=== PATIENT | female | born 1980 | race Two or more races ===

== ENCOUNTER 2023-04-25 18:23 | Outpatient (REF) | payer MEDICAID, SELFPAY | END 2023-04-25 18:24 | disposition home or self-care (01) | LOC: HO.HHCLNP 18:23 | PROVIDERS: Visit Provider Nurse Practitioner Primary Care | DX: R30.0 Dysuria (principal) | CPT/HCPCS: 87086; 87088; 87186 ==

== ENCOUNTER 2023-06-19 11:14 | Outpatient (REF) | payer MEDICAID, SELFPAY ==
[2023-06-19 14:27] LABS: Alanine Aminotransferase 17 U/L (0-31); Albumin Level 4.2 g/dL (3.5-5.0); Alkaline Phosphatase 59 U/L (39-117); Aspartate Amino Transferase 18 U/L (5-31); Bilirubin Direct 0.4 mg/dL (0.0-0.5); Bilirubin Total 1.1 mg/dL (0.0-1.0); Total Protein 7.1 g/dL (6.5-8.0)
== END 2023-06-19 11:15 | disposition home or self-care (01) ==
LOC: HO.HHCL 11:14
PROVIDERS: Visit Provider Family Medicine
DX: R74.8 Abnormal levels of other serum enzymes (principal)
CPT/HCPCS: 36415; 80076

== ENCOUNTER 2023-07-08 15:46 | Outpatient (REF) | payer MEDICAID, SELFPAY | END 2023-07-08 15:47 | disposition home or self-care (01) | LOC: HO.HHCL 15:46 | PROVIDERS: Visit Provider Emergency Medicine | DX: R30.0 Dysuria (principal) | CPT/HCPCS: 87086; 87088; 87186 ==

== ENCOUNTER 2023-09-15 11:38 | Outpatient (REF) | payer OTHER, SELFPAY | END 2023-09-15 11:39 | disposition home or self-care (01) | LOC: HO.HHCLNP 11:38 | PROVIDERS: Visit Provider Internal Medicine | DX: R35.0 Frequency of micturition (principal) | CPT/HCPCS: 87086 ==

== ENCOUNTER 2024-01-14 12:11 | Outpatient (REF) | payer MEDICAID, SELFPAY ==
[2024-01-14 13:51] LABS: Estimated Average Glucose 117 mg/dL; Hemoglobin A1c % 5.7 % (<6.0)
[2024-01-14 14:33] LABS: Alanine Aminotransferase 43 U/L (0-31); Albumin Level 4.3 g/dL (3.5-5.0); Alkaline Phosphatase 63 U/L (39-117); Anion Gap 14 (12-20); Aspartate Amino Transferase 23 U/L (5-31); Bilirubin Total 1.3 mg/dL (0.0-1.0); Blood Urea Nitrogen 13 mg/dL (9-16); Calcium 9.6 mg/dL (8.4-10.2); Carbon Dioxide 25 mmol/L (22-29); Chloride 105 mmol/L (96-108); Cholesterol 201 mg/dL (<200); Estimated Glomerular Filt Rate > 60; Glucose Random 95 mg/dL (60-115); HDL Cholesterol 53 mg/dL (>40); LDL Cholesterol Calculated 132 mg/dL (<100); Potassium 4.3 mmol/L (3.3-5.1); Sodium 140 mmol/L (135-145); Total Protein 7.4 g/dL (6.5-8.0); Triglycerides 81 mg/dL (<150)
[2024-01-14 15:34] LABS: Reflex LDLD? No
[2024-01-15 04:09] LABS: Syphilis Screen Nonreactive (Nonreactive)
[2024-01-15 04:40] LABS: HIV AB/AG Nonreactive (Nonreactive); HIV Num 1 0.04 S/CO (0.00-0.99); ~HepC Num1 0.09 S/CO (0.00-0.79); ~Hepatitis C Antibody Nonreactive (Nonreactive)
== END 2024-01-14 12:12 | disposition home or self-care (01) ==
LOC: HO.HHCL 12:11
PROVIDERS: Visit Provider Family Medicine
DX: Z11.3 Encounter for screening for infections with a predominantly sexual mode of transmission (principal); R74.8 Abnormal levels of other serum enzymes
CPT/HCPCS: 36415; 80053; 80061; 83036; 86780; 86803; 87389

== ENCOUNTER 2024-02-03 15:54 | Outpatient (REF) | payer MEDICAID, SELFPAY | END 2024-02-03 15:55 | disposition home or self-care (01) | LOC: HO.HHCL 15:54 | PROVIDERS: Visit Provider Emergency Medicine | DX: R30.0 Dysuria (principal) | CPT/HCPCS: 87086; 87088; 87186 ==

== ENCOUNTER 2024-04-08 23:29 | Emergency (ER) | payer MEDICAID, SELFPAY ==
--- NOTE | 2024-04-09 00:10 | PC.NURSE ---
Pt left prior to being triaged.
== END 2024-04-09 00:10 | disposition left against medical advice (07) ==
PROVIDERS: Emergency Provider Emergency Medicine; PCP Family Medicine
DX: R07.9 Chest pain, unspecified (principal); Z53.21 Procedure and treatment not carried out due to patient leaving prior to being seen by health care provider

== ENCOUNTER 2024-05-13 10:56 | Outpatient (REF) | payer MEDICAID, SELFPAY ==
[2024-05-16 07:23] LABS: TS Negative Control Passed; TS Panel A 1; TS Panel B 0; TS Positive Control Passed; TSpotTB Negative (Negative)
== END 2024-05-13 10:57 | disposition home or self-care (01) ==
LOC: HO.HHCL 10:56
PROVIDERS: Visit Provider Family Medicine
DX: Z02.89 Encounter for other administrative examinations (principal)
CPT/HCPCS: 36415; 86481

== ENCOUNTER 2025-03-03 12:06 | Outpatient (REF) | payer MEDICAID, SELFPAY ==
[2025-03-03 13:21] LABS: MANUAL DIFF FLAG NO
[2025-03-03 13:25] LABS: Basophils Percent Auto 0.7 % (0-2); Eosinophils Absolute Auto 0.2 X10*3/uL (0.0-0.4); Eosinophils Percent Auto 3.9 % (0-4); Imm Gran Abs Auto 0.01 X10*3/uL (0.00-0.03); Imm Gran Pct Auto 0.2 % (0.0-0.4); Mean Corpuscular HGB Conc 33.3 g/dl (31.0-35.0); Mean Platelet Volume 10.3 fL (9.4-12.3); Monocytes Absolute Auto 0.6 X10*3/uL (0.1-1.2); Monocytes Percent Auto 10.3 % (2-11); Neutrophils Absolute Auto 2.6 x10*3/uL (2.0-8.3); Neutrophils Percent Auto 47.9 % (45-73); Platelet Count 319 X10*3/uL (160-400); Red Blood Count 4.83 X10*6/uL (4.20-5.50); Red Cell Distribution Width 12.8 % (11.0-16.0); White Blood Count 5.4 X10*3/uL (4.8-10.8)
[2025-03-03 13:38] LABS: Estimated Average Glucose 108 mg/dL; Hemoglobin A1C 131.9166 umol/L; Hemoglobin A1c % 5.4 % (<6.0); Total Hemoglobin (HGBA1C) 3672.2455 umol/L
[2025-03-03 13:45] LABS: Alanine Aminotransferase 45 U/L (0-31); Albumin Level 4.4 g/dL (3.5-5.0); Alkaline Phosphatase 57 U/L (39-117); Anion Gap 11 (12-20); Aspartate Amino Transferase 36 U/L (5-31); Bilirubin Total 0.7 mg/dL (0.0-1.0); Blood Urea Nitrogen 15 mg/dL (9-16); Calcium 9.1 mg/dL (8.4-10.2); Carbon Dioxide 28 mmol/L (22-29); Chloride 106 mmol/L (96-108); Cholesterol 199 mg/dL (<200); Estimated Glomerular Filt Rate > 60; Glucose Random 93 mg/dL (60-115); HDL Cholesterol 59 mg/dL (>40); LDL Cholesterol Calculated 114 mg/dL (<100); Potassium 4.9 mmol/L (3.3-5.1); Sodium 140 mmol/L (135-145); Triglycerides 130 mg/dL (<150)
[2025-03-03 14:02] LABS: TSH reflex Free T4 1.08 uIU/mL (0.32-4.0)
[2025-03-03 14:04] LABS: HBsAGNum1 0.34 S/CO (0.00-0.99); HIV AB/AG Nonreactive (Nonreactive); HIV Num 1 0.06 S/CO (0.00-0.99); Hepatitis B Surface Antigen Negative (Negative); Syphilis Screen Nonreactive (Nonreactive); ~HepC Num1 0.09 S/CO (0.00-0.79); ~Hepatitis C Antibody Nonreactive (Nonreactive)
--- OUTSIDE RECORDS SUMMARY | 2025-03-03 14:29 | XMS_ITS | Encounter Summary ---
Author Organization [employer] Address [address] [facility] [address] [place] [address] Care Team Providers Care Community Health Planning Director Name Role Phone Milana Cutler MD Primary Care Provider [phone] Encounter Details Date Type Department Care Team (Late st Contact Info) Description 09/17/2023 Orders Only [facility] [address] [place], [place] [id number] [place] Myrick MD [address] [place], [place] [id number] Social History Tobacco Use Types Packs/Day Years Used Date Smoking Tobacco: Never Passive Smoke Exposure: Never Smokeless Tobacco: Never Alcohol Use Standard Drinks/Week Comments Not Currently 0 (1 standard drink = 0.6 oz pur e alcohol) Depression Answer Date Recorded Patient Health Questionnaire-9 Score 0 06/19/2023 Housing Stability Answer Date Recorded What is your housing situation today? I have steffanie campoverde 06/24/[address] you li ve. Do you have problems with any of the following? None of the above 06/24/2023 Food Insecurity Answer Date Recorded Within the past 12 months, y ou worried that your food would run out before you got money to buy more: Never True 06/24/2023 Within the past 12 months,th e food you bought just didn't last and you didn't have enough money to get more: Never True Transportation Answer Date Recorded In the past 12 months, has l ack of transportation kept you from medical appts, meetings, work or from getting things needed for daily living? No 06/24/2023 Utilities Answer Date Recorded In the past 12 months, has t he electric, gas, oil or water company threatened to shut off services in your home? No 06/24/2023 Depression Answer Date Recorded Patient Health Questionnaire-2 Score 0 06/19/2023 Comments Unknown Sex and Gender Information Value Date Recorded Sex Assigned at Female 07/08/2022 10:37 AM EDT Legal Sex Female 10:37 AM EDT Gender Identity Female 07/08/2022 10:37 AM EDT Sexual Orientation Straight 07/08/2022 10 :37 AM EDT documented as of this encounter Plan of Treatment Not on file documented as of this encounter Visit Diagnoses Not on filedocumented in this encounter Additional Health Concerns Assessment Noted Time PHQ-9 Depression Total Score: 0 06/19/20 23 10:39 AM EDT documented as of this encounter Care Teams Community Health Planning Director Relationship Specialty Start Date End Date Milana Cutler MD [address] [place] [id number] PCP - General Family Medicine 05/03/22 documented as of this encounter
[2025-03-03 15:29] LABS: Reflex LDLD? No
== END 2025-03-03 12:07 | disposition home or self-care (01) ==
LOC: HO.HHCL 12:06
PROVIDERS: PCP Family Medicine; Visit Provider Family Medicine
DX: R53.83 Other fatigue (principal); Z11.3 Encounter for screening for infections with a predominantly sexual mode of transmission; Z13.1 Encounter for screening for diabetes mellitus; Z13.220 Encounter for screening for lipoid disorders
CPT/HCPCS: 36415; 80053; 80061; 83036; 84443; 85025; 86780; 86803; 87340; 87389